=== PATIENT | female | born 1930 | race Caucasian/White ===

== ENCOUNTER 2018-07-03 16:22 | Emergency (ER) | payer MEDICARE, OTHER ==
[~2018-07-03] VITALS: Ht 162.6 cm; Wt 59.0 kg
--- OUTSIDE RECORDS SUMMARY | 2018-07-03 16:25 | XMS REPORT ---
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 Allergies, Adverse Reactions, Alerts Allergy Name Allergy Type Status Severity Reaction(s) Onset Date Inactive Date Treating Clinician Comments Penicillins DA Active U 2018-06-17 00:00:00 Ozbnfkf-Isb-Xzo Reductase Inhibitor DA Active NH 2018-06-17 00:00:00 codeine DA Active SV 2018-06-17 00:00:00 Penicillins DA Active U 2017-12-05 00:00:00 Kdinkgo-Eyj-Zvl Reductase Inhibitor DA Active NH 2017-12-05 00:00:00 codeine DA Active SV 2017-12-05 00:00:00 Medications This patient has no known medications. Results Test Description Test Time Test Comments Text Results Atomic Results Result Comments URINALYSIS COMPLETE 2018-06-17 15:13:00 UA COLOR (test code=COLU) STRAW YELLOW UA APPEARANCE (test code=APPU) CLEAR CLEAR UA GLUCOSE DIPSTICK (test code=DGLUU) NEGATIVE mg/dL NEGATIVE UA BILIRUBIN DIPSTICK (test code=BILU) NEGATIVE mg/dL NEGATIVE UA KETONE DIPSTICK (test code=KETU) Negative mg/dL NEGATIVE UA SPECIFIC GRAVITY (test code=SGU) 1.003 1.001-1.035 UA BLOOD DIPSTICK (test code=JUNIE) Negative NEGATIVE UA PH DIPSTICK (test code=VALENTINE) 8.0 5.0-8.0 UA PROTEIN DIPSTICK (test code=PROU) Negative mg/dL NEGATIVE UA UROBILINIOGEN DIPSTICK (test code=URO) NEGATIVE mg/dL NEGATIVE UA NITRITE DIPSTICK (test code=ERICKA) NEGATIVE NEGATIVE UA LEUKOCYTE ESTERASE W REFLEX (test code=LEUUR) NEGATIVE NEGATIVE UA WBC (test code=WBCU) 0-5 #/HPF 0-5 UA RBC (test code=RBCU) 0-2 #/HPF 0-5 UA EPITHELIAL CELLS (test code=EPIU) FEW per HPF FEW UA BACTERIA (test code=BACU) NONE SEEN #/HPF NONE Urine Source? Clean Catch- CT ABD PELVIS W/O [id number] 14:18:00 Name: [facility] 1930 Age[facility]S: 87 / F [address] [facility] [id number] Loc: [place] [address] Phys: Reji Lucero MD Acct: [id number] Di s Date: Status: REG ER PHONE #: [phone] Exam Date: 06/17/2018 1402 FAX #: Reason: abdominal pain EXAMS: CPT CODE: [id number] CT ABD PELVIS W/O CONT 22976 HISTORY: Abdominal pain. COMPARISON: CT scan from December 16, 2010. CT of abdo men and pelvis: Stone protocol. Automated exposure control. CT AB DOMEN: The lung bases are clear. Dependent changes. Calcified gr anuloma on the right. Noncontrast hepatic parenchyma is unre markable. Patient is post cholecystectomy. Unremarkable spl een. The stomach distended incompletely with retrocardiac hiatal hernia. Noncontrast pancreas and adrenals are normal. Kidneys are free from hydroureteronephrosis. No calyceal stones. No pat hologic adenopathy. Heavy atherosclerotic calcifications of the abdominal and pelvic vasculature. No bowel obstruction or colitis or divert iculitis or enteritis. Constipation. CT PELVIS: Pelvic bowel loops are unobstructed. Mild fluid distention of the small bowel. Appendix is not visible but no inflammatory changes. Unr emarkable well-distended urinary bladder. The uterus is poorly visible. No free fluid or free air. Subcutaneous tissues and the musculatur e are normal in appearance. DJD. Gamma nail within the right hip resulti ng in extensive artifact obscuring large portions of the pelvis. Osteopen ia. IMPRESSION: No hydroureteronephrosis or ca lyceal stones. Appendix is not visible but no inflammatory south nge. No bowel obstruction or colitis or diverticulitis or enteritis. N o free fluid PAGE 1 Signed Report (CONTINUED) Name: MAGDALENA S[facility] : 1930 Age/S: 87 / F [address] Unit #: [id number] Loc: [place] [address] Phys : Maisha Lucero MD Acct: [id number] Dis Date: Status: REG ER PHONE #: [phone] Exam Date: 06/17/2018 1402 FAX #: [phone] Reason: abdominal pain EXAMS: CPT CODE: [id number] CT ABD PELVIS W/O CONT [id number] <Continued> or free air. at 1418 Reported and signed by: Shun Castro M.D. CC: Maisha Lucero MD; Shola Meadows Technologist:RT ASHU(R) CT CTDI: DLP: Trnscb Date/Time: 06/17/2018 (1418) [email or web address] Orig Print D/T: S: 06/17/2018 (142) CTDI: DLP: PAGE 2 Signed Report CBC W/O DIFF 2018-06-17 11:45:00* Test Item Value Reference Range Comments WHITE BLOOD CELL (test code=WBC) 5.4 K/mm3 4.5-12.5 RED BLOOD CELL (test code=RBC) 4.43 mill/mm3 3.7-5.2 HEMOGLOBIN (test code=HGB) 12.2 gram/dL 11.5-15.5 HEMATOCRIT (test code=HCT) 39.5 % 36.0-46.0 MEAN CELL VOLUME (test code=MCV) 89.2 fL 80-98 MEAN CELL HGB (test code=MCH) 27.5 picogram 27.0-33.0 MEAN CELL HGB CONCETRATION (test code=MCHC) 30.9 gram/dL 33.0-36.0 RED CELL DISTRIBUTION WIDTH (test code=RDW) 12.8 % 11.6-16.2 PLATELET COUNT (test code=PLT) 190 K/mm3 150-450 MEAN PLATELET VOLUME (test code=MPV) 11.3 fL 6.7-11.0 CBC W/O [id number] 11:43:00* Test Item Value Reference Range Comments WHITE BLOOD CELL (test code=WBC) K/mm3 4.5-12.5 RED BLOOD CELL (test code=RBC) mill/mm3 3.7-5.2 HEMOGLOBIN (test code=HGB) 12.2 gram/dL 11.5-15.5 HEMATOCRIT (test code=HCT) 39.5 % 36.0-46.0 MEAN CELL VOLUME (test code=MCV) fL 80-98 MEAN CELL HGB (test code=MCH) picogram 27.0-33.0 MEAN CELL HGB CONCETRATION (test code=MCHC) gram/dL 33.0-36.0 RED CELL DISTRIBUTION WIDTH (test code=RDW) % 11.6-16.2 PLATELET COUNT (test code=PLT) K/mm3 150-450 MEAN PLATELET VOLUME (test code=MPV) fL 6.7-11.0 HEPATIC FUNCTION [id number] 11:42:00* Test Item Value Reference Range Comments TOTAL PROTEIN (test code=PROT) 6.8 gram/dL 6.4-8.2 ALBUMIN (test code=ALB) 3.9 g/dL 3.4-5.0 GLOBULIN (test code=GLOB) 2.9 gram/dL 2.7-4.2 ALBUMIN/GLOBULIN RATIO (test code=A/G) 1.3 0.75-1.50 BILIRUBIN TOTAL (test code=BILT) 0.60 mg/dL 0.0-1.0 BILIRUBIN DIRECT (test code=BILD) 0.14 mg/dL 0.0-0.20 SGOT/AST (test code=AST) 14 IUnit/L 15-37 SGPT/ALT (test code=ALT) 17 IUnit/L 12-78 ALKALINE PHOSPHATASE TOTAL (test code=ALKP) 45 IUnit/L 45-117 Note change in reference range due to change in reagent. [id number] 11:42:00* Test Item Value Reference Range Comments LIPASE (test code=LIP) 78 U/L 73.0-393.0 BASIC METABOLIC [id number] 11:42:00* Test Item Value Reference Range Comments SODIUM (test code=NA) 140 mmol/L 136-145 POTASSIUM (test code=K) 3.8 mmol/L 3.5-5.1 CHLORIDE (test code=CL) 106.0 mmol/L 98-107 CARBON DIOXIDE (test code=CO2) 26.0 mmol/L 21-32 ANION GAP (test code=GAP) 11.8 10-20 GLUCOSE (test code=GLU) 100 mg/dL 74-106 BLOOD UREA NITROGEN (test code=BUN) 21 mg/dL 7-18 GLOMERULAR FILTRATION RATE (test code=GFR) 59 mL/min >=60 Estimated GFR by using Modified MDRD formula.Chronic kidney disease is defined as either kidney damageor GFR <60 mL/min/1.73 m2 for >3 months. CREATININE (test code=CREAT) 0.90 mg/dL 0.55-1.02 Note change in reference range due to change in reagent. BUN/CREATININE RATIO (test code=BUN/CREA) 23.6 10-20 CALCIUM (test code=CA) 9.5 mg/dL 8.5-10.1 [id number] 11:42:00* Test Item Value Reference Range Comments TROPONIN-I (test code=TROPI) <0.015 ng/mL 0-0.045 BASIC METABOLIC [id number] 11:28:00* Test Item Value Reference Range Comments SODIUM (test code=NA) 140 mmol/L 136-145 POTASSIUM (test code=K) 3.8 mmol/L 3.5-5.1 CHLORIDE (test code=CL) 106.0 mmol/L 98-107 CARBON DIOXIDE (test code=CO2) mmol/L 21-32 ANION GAP (test code=GAP) 10-20 GLUCOSE (test code=GLU) mg/dL 74-106 BLOOD UREA NITROGEN (test code=BUN) mg/dL 7-18 GLOMERULAR FILTRATION RATE (test code=GFR) mL/min >=60 CREATININE (test code=CREAT) mg/dL 0.55-1.02 BUN/CREATININE RATIO (test code=BUN/CREA) 10-20 CALCIUM (test code=CA) mg/dL 8.5-10.1 [id number] 11:28:00* Test Item Value Reference Range Comments TROPONIN-I (test code=TROPI) ng/mL 0-0.045 TROPONIN I [id number] 10:58:00* Test Item Value Reference Range Comments TROPONIN I RAPID (test code=TROPIRAP) 0.00 ng/mL <0.08 Please Note New Reference Range 0.00-0.079 ng/mL - Negative>or=0.08 ng/mL - Positive The use of serial sampling and testing protocol is arecommended practice.An elevated troponin level alone is often not sufficient fordiagnosis of myocardial infarction. Troponin results obtained by different assays may vary.Evaluation of the extent of myocardial damage based onincrease of troponin would be valid only if similarmethodology is used. - XR CHEST 1 [id number] 09:59:00 FAX: Les Angulo NP [phone] [place]: St: REG FAX: Cam Oconnor MD [phone] Name: MAGDALENA [facility] : 1930 Age/S: 87/F [address] [facility] Unit #: [id number] Loc: [place] [address] Phys: Les Angulo NP Acct: [id number] Dis Date: Status: REG ER PHONE #: [phone] Exam Date: 06/17/2018 0945 FAX #: [phone] Reason: CHEST PAIN EXAMS: CPT CODE: [id number] XR CHEST 1 V 74646 HISTORY: Chest pain. COMPARISON: June 02, 2018. No acute infiltrates, effusion or congestion is noted. Hyperinflation and scarring. Cardiomegaly. IMPRESSION: No acute infiltrates, effusion or congestion. at 0959 Reported and signed by: Shun Castro M.D. CC: Les Angulo NP; Cam Meadows Technologist: HARI CANCHOLA(Romie) Trnscrd Date/Time/By: 06/17/2018 (0959) : By: [email or web address] Orig Print D/T: S: 06/17/2018 (1002) PAGE 1 Signed Report BASIC METABOLIC [id number] 08:57:00* Test Item Value Reference Range Comments SODIUM (test code=NA) 140 mmol/L 136-145 POTASSIUM (test code=K) 3.9 mmol/L 3.5-5.1 CHLORIDE (test code=CL) 109.0 mmol/L 98-107 CARBON DIOXIDE (test code=CO2) 24.0 mmol/L 21-32 ANION GAP (test code=GAP) 10.9 10-20 GLUCOSE (test code=GLU) 98 mg/dL 74-106 BLOOD UREA NITROGEN (test code=BUN) 22 mg/dL 7-18 GLOMERULAR FILTRATION RATE (test code=GFR) > 60 mL/min >=60 Estimated GFR by using Modified MDRD formula.Chronic kidney disease is defined as either kidney damageor GFR <60 mL/min/1.73 m2 for >3 months. CREATININE (test code=CREAT) 0.80 mg/dL 0.55-1.02 Note change in reference range due to change in reagent. BUN/CREATININE RATIO (test code=BUN/CREA) 28.0 10-20 CALCIUM (test code=CA) 9.4 mg/dL 8.5-10.1 [id number] 08:57:00* Test Item Value Reference Range Comments TROPONIN-I (test code=TROPI) <0.015 ng/mL 0-0.045 BASIC METABOLIC [id number] 08:54:00* Test Item Value Reference Range Comments SODIUM (test code=NA) 140 mmol/L 136-145 POTASSIUM (test code=K) 3.9 mmol/L 3.5-5.1 CHLORIDE (test code=CL) 109.0 mmol/L 98-107 CARBON DIOXIDE (test code=CO2) mmol/L 21-32 ANION GAP (test code=GAP) 10-20 GLUCOSE (test code=GLU) mg/dL 74-106 BLOOD UREA NITROGEN (test code=BUN) mg/dL 7-18 GLOMERULAR FILTRATION RATE (test code=GFR) mL/min >=60 CREATININE (test code=CREAT) mg/dL 0.55-1.02 BUN/CREATININE RATIO (test code=BUN/CREA) 10-20 CALCIUM (test code=CA) mg/dL 8.5-10.1 [id number] 08:54:00* Test Item Value Reference Range Comments TROPONIN-I (test code=TROPI) ng/mL 0-0.045 - XR CHEST 1 [id number] 08:49:00 FAX: Ryan Escamilla DO [place]: St: [facility] FAX: Y Cam Meadows MD [phone] Name: MAGDALENA [facility] : 1930 Age/S: 87/F [address] [facility] Unit #: [id number] Loc: [place] [address] Phys: Ryan Escamilla DO Acct: [id number] Dis Date: Status: REG ER PHONE #: [phone] Exam Date: 06/02/2018829 FAX #: [phone] Reason: CHEST PAIN EXAMS: CPT CODE: [id number] XR CHEST 1 V 27573 EXAM: Chest x-ray, one view; INFORMATION: Chest pain and hypertension; IMPRESSION: 1. No evidence of active cardiopulmonary disease. 2. No significant change compared with a study from March 21, 2018 and august: Aortic calcification; the heart is borderline in size. at 0849 Reported and signed by: Celio Faustin M.D. CC: Ryan Escamilla DO; Cam Meadows Technologist: HARI CANCHOLA(Romie) Trnscrd Date/Time/By: 06/02/2018 (0849) : By: [place] Orig Print D/T: S: 06/02/2018 (0852) PAGE 1 Signed Report TROPONIN I RAPID 2018-06-02 08:46:00* Test Item Value Reference Range Comments TROPONIN I RAPID (test code=TROPIRAP) 0.01 ng/mL <0.08 Please Note New Reference Range 0.00-0.079 ng/mL - Negative>or=0.08 ng/mL - Positive The use of serial sampling and testing protocol is arecommended practice.An elevated troponin level alone is often not sufficient fordiagnosis of myocardial infarction. Troponin results obtained by different assays may vary.Evaluation of the extent of myocardial damage based onincrease of troponin would be valid only if similarmethodology is used. CBC W/O [id number] 08:42:00* Test Item Value Reference Range Comments WHITE BLOOD CELL (test code=WBC) 5.1 K/mm3 4.5-12.5 RED BLOOD CELL (test code=RBC) 4.45 mill/mm3 3.7-5.2 HEMOGLOBIN (test code=HGB) 12.2 gram/dL 11.5-15.5 HEMATOCRIT (test code=HCT) 39.4 % 36.0-46.0 MEAN CELL VOLUME (test code=MCV) 88.5 fL 80-98 MEAN CELL HGB (test code=MCH) 27.4 picogram 27.0-33.0 MEAN CELL HGB CONCETRATION (test code=MCHC) 31.0 gram/dL 33.0-36.0 RED CELL DISTRIBUTION WIDTH (test code=RDW) 13.2 % 11.6-16.2 PLATELET COUNT (test code=PLT) 169 K/mm3 150-450 MEAN PLATELET VOLUME (test code=MPV) 10.6 fL 6.7-11.0 CBC W/O [id number] 08:37:00* Test Item Value Reference Range Comments WHITE BLOOD CELL (test code=WBC) K/mm3 4.5-12.5 RED BLOOD CELL (test code=RBC) mill/mm3 3.7-5.2 HEMOGLOBIN (test code=HGB) 12.2 gram/dL 11.5-15.5 HEMATOCRIT (test code=HCT) 39.4 % 36.0-46.0 MEAN CELL VOLUME (test code=MCV) fL 80-98 MEAN CELL HGB (test code=MCH) picogram 27.0-33.0 MEAN CELL HGB CONCETRATION (test code=MCHC) gram/dL 33.0-36.0 RED CELL DISTRIBUTION WIDTH (test code=RDW) % 11.6-16.2 PLATELET COUNT (test code=PLT) K/mm3 150-450 MEAN PLATELET VOLUME (test code=MPV) fL 6.7-11.0
[2018-07-03] MEDS ORDERED: LOSARTAN POTASS50 MG (16:39)
[2018-07-03] MEDS ORDERED: CLONIDINE HCL0.2 MG PO (16:39)
[2018-07-03] MEDS ORDERED: HYDRALAZINE HCL25 MG (16:39)
[2018-07-03] MEDS ORDERED: FUROSEMIDE20 MG (16:39)
[2018-07-03] MEDS ORDERED: ALPRAZOLAM0.25 MG (16:39)
[2018-07-03] MEDS ORDERED: COLACE100 MG PO (16:39)
[2018-07-03] MEDS ORDERED: HYDROCODON-ACE1 EA11 PO (16:39)
[2018-07-03 17:48] LABS: BILIRUBIN,URINE NEGATIVE (NEGATIVE); CLARITY,URINE CLEAR (CLEAR); COLOR,URINE YELLOW (YELLOW); KETONES,URINE NEGATIVE (NEGATIVE); LEUKOCYTE ESTERASE ,URINE NEGATIVE (NEGATIVE); NITRITE,URINE NEGATIVE (NEGATIVE); PROTEIN,URINE DIPSTICK NEGATIVE (NEGATIVE); URINE UROBILINOGEN 0.2 mg/dL (0.2 - 1)
[2018-07-03 18:01] LABS: EPITHELIAL CELLS,URINE RARE /LPF
--- NOTE | 2018-07-03 19:15 | NUR ---
PT REFUSED LAB DRAW. JUST WANTS URINE CHECKED
[2018-07-03] MEDS ORDERED: HYDRALAZINE HCL 25 MG TAB PO NR (19:30)
--- NOTE | 2018-07-03 21:30 | NUR ---
PT LEFT WITHOUT D/C PAPERWORK. STATES HER BP WILL GET BETTER WHEN SHE GETS HOME.
[2018-07-04 02:59] VITALS: BP 200/85
== END 2018-07-03 21:30 | disposition home or self-care (01) ==
LOC: ER 16:22
DX: R35.0 Frequency of micturition (principal); I10 Essential (primary) hypertension; F41.9 Anxiety disorder, unspecified
CPT/HCPCS: 81001; 87086